=== PATIENT | female | born 1980 | race Caucasian/White ===

== ENCOUNTER 2016-07-17 17:46 | Emergency (ER) | payer BC | END 2016-07-17 22:51 | disposition home or self-care (01) | LOC: ER 17:46 | DX: O26.892 Other specified pregnancy related conditions, second trimester (principal); N13.2 Hydronephrosis with renal and ureteral calculous obstruction; Z3A.00 Weeks of gestation of pregnancy not specified | CPT/HCPCS: 36415; 76770; 80053; 81003; 83690; 84703; 85025; 96361; 96374 ==

== ENCOUNTER 2016-07-18 22:43 | Inpatient (IN) | payer BC ==
[~2016-07-18] VITALS: Ht 162.6 cm; Wt 73.9 kg
[2016-07-19] MEDS ORDERED: ONDANSETRON 4 MG VIAL ONE (02:17)
[2016-07-19] MEDS ORDERED: NS 0.9% ONE (02:17)
[2016-07-19] MEDS ORDERED: DILAUDID 1 MG/ML AMP ONE ×2 (02:17)
[2016-07-19] MEDS ORDERED: MORPHINE 4 MG/ML SYR IV PRN (02:55)
[2016-07-19] MEDS ORDERED: PROMETHAZINE 25 MG/ML VIAL IV PRN (02:55)
[2016-07-19 03:50] VITALS: BP_SYST 121; RESP 18; TEMP 98; Ht 162.6 cm; Wt 73.9 kg
[2016-07-19] MEDS: LACT RINGERS 1,000 ML IV SCH ×2 (04:14→10:50)
[2016-07-19 07:31] VITALS: BP_SYST 112; RESP 20; TEMP 98.2
[2016-07-19] MEDS ORDERED: PHARMACY TO DOSE GENTAMICIN IV SCH (08:40)
[2016-07-19] MEDS: MORPHINE 4 MG/ML SYR IV PRN ×3 (09:11→17:42)
[2016-07-19] MEDS: PROMETHAZINE 25 MG/ML VIAL IV PRN ×2 (09:35→18:16)
[2016-07-19] MEDS: ASPIRIN 81 MG CHEW TAB PO SCH (10:50)
[2016-07-19] MEDS: CLINDAMYCIN 900 MG in DEXTROSE 5% 50 ML IV SCH ×2 (10:50→17:07)
[2016-07-19] MEDS: FOLIC ACID 400 MCG TAB PO SCH ×2 (10:51→21:43)
[2016-07-19] MEDS: PRENATAL VITAMIN TAB PO SCH (10:51)
[2016-07-19] MEDS: PANTOPRAZOLE 40 MG TAB PO SCH (10:51)
[2016-07-19 11:10] VITALS: BP_SYST 91; RESP 16; TEMP 98.2
[2016-07-19] MEDS: GENTAMICIN 90 MG in SODIUM CHLORIDE 0.9% 100 ML IV SCH ×2 (12:55→21:43)
[2016-07-19 15:36] VITALS: BP_SYST 97; RESP 15; TEMP 98.5
[2016-07-19 19:58] VITALS: BP_SYST 107; RESP 16; TEMP 98.3
[2016-07-19] MEDS ORDERED: MICONAZOLE 2% CR 28 GM TOPICAL SCH (21:00)
[2016-07-19] MEDS: DOCUSATE SOD 100 MG CAP PO SCH (21:00)
[2016-07-19 23:11] VITALS: BP_SYST 110; RESP 16; TEMP 98
[2016-07-20] MEDS: CLINDAMYCIN 900 MG in DEXTROSE 5% 50 ML IV SCH ×3 (00:33→15:13)
[2016-07-20] MEDS: LACT RINGERS 1,000 ML IV SCH (00:39)
[2016-07-20] MEDS: MORPHINE 4 MG/ML SYR IV PRN (02:25)
[2016-07-20 03:08] VITALS: BP_SYST 108; RESP 16; TEMP 98.4
[2016-07-20] MEDS: GENTAMICIN 90 MG in SODIUM CHLORIDE 0.9% 100 ML IV SCH ×2 (04:48→15:11)
[2016-07-20] MEDS: PANTOPRAZOLE 40 MG TAB PO SCH (06:43)
[2016-07-20 07:16] VITALS: BP_SYST 119; RESP 16; TEMP 98
[2016-07-20] MEDS: PRENATAL VITAMIN TAB PO SCH (08:05)
[2016-07-20] MEDS: FOLIC ACID 400 MCG TAB PO SCH (08:05)
[2016-07-20] MEDS: ASPIRIN 81 MG CHEW TAB PO SCH (08:05)
[2016-07-20] MEDS: DOCUSATE SOD 100 MG CAP PO SCH (08:05)
[2016-07-20] MEDS ORDERED: FERROUS SULF 325 MG TAB PO SCH (09:00)
[2016-07-20 10:58] VITALS: BP_SYST 113; RESP 16; TEMP 98.1
[2016-07-20 13:48] VITALS: BP_SYST 113; RESP 16; TEMP 98.1
[2016-07-20 15:07] VITALS: BP_SYST 104; RESP 16; TEMP 98.4
== END 2016-07-20 16:53 | disposition home or self-care (01) | DRG 781 ==
LOC: ENRESERVDT → ENRESERVTM → ER 22:43 → EMR 07-19 02:33 → ENPENDDIS 07-19 02:33 → 5THE 07-19 03:51
PROVIDERS: ADMIT Obstetrics & Gynecology; ATTEND Obstetrics & Gynecology
DX: O23.02 Infections of kidney in pregnancy, second trimester (principal); E72.12 Methylenetetrahydrofolate reductase deficiency; O99.282 Endocrine, nutritional and metabolic diseases complicating pregnancy, second trimester; Z3A.22 22 weeks gestation of pregnancy; Z79.82 Long term (current) use of aspirin
CPT/HCPCS: 36415; 80053; 80170; 81001; 85025; 87088; 96361; 96374; 96375; 96376